=== PATIENT | female | born 1950 | race Two or more races ===

== ENCOUNTER 2017-10-24 10:33 | Outpatient (CLI) | payer OTHER | END 2017-10-24 10:45 | disposition home or self-care (01) | LOC: SONOGRAMA 10:33 | DX: N60.11 Diffuse cystic mastopathy of right breast (principal); N60.12 Diffuse cystic mastopathy of left breast; N63.11 Unspecified lump in the right breast, upper outer quadrant ==

== ENCOUNTER → 2017-12-19 | Day surgery (SDC) | payer OTHER | END | disposition home or self-care (01) | LOC: CIR.AMB 06:55 | DX: C50.912 Malignant neoplasm of unspecified site of left female breast (principal); D24.2 Benign neoplasm of left breast ==

== ENCOUNTER 2018-01-30 07:00 | Day surgery (SDC) | payer OTHER ==
[~2018-01-30 07:00] MED LIST: ENALAPRIL MALEAT5 MG PO; GLIPIZIDE5 MG PO
== END 2018-01-30 13:00 | disposition home or self-care (01) ==
LOC: CIR.AMB 07:00
DX: C50.411 Malignant neoplasm of upper-outer quadrant of right female breast (principal)

== ENCOUNTER 2024-03-24 10:30 | Outpatient (CLI) | payer OTHER | END 2024-03-24 10:41 | disposition home or self-care (01) | LOC: TOM 10:30 | PROVIDERS: ATTEND Surgery | DX: R10.9 Unspecified abdominal pain (principal); R63.4 Abnormal weight loss; R11.0 Nausea | CPT/HCPCS: 74177; Q9965 ==